=== PATIENT | male | born 1990 | race African-American/Black ===

== ENCOUNTER 2022-07-12 18:33 | Emergency (ER) | payer SELFPAY ==
[~2022-07-12] VITALS: Ht 175.3 cm; Wt 73.0 kg
[2022-07-12 18:37] VITALS: BP 135/73
[2022-07-12] MEDS ORDERED: NALO4SPR BOTHNSTRLS (20:06)
== END 2022-07-12 20:35 | disposition home or self-care (01) ==
LOC: ER 18:33
DX: T40.411A Poisoning by fentanyl or fentanyl analogs, accidental (unintentional), initial encounter (principal); F11.188 Opioid abuse with other opioid-induced disorder; R55 Syncope and collapse; Y92.522 Railway station as the place of occurrence of the external cause
CPT/HCPCS: 99283